=== PATIENT | female | born 1990 | race Caucasian/White ===

== ENCOUNTER 2021-11-07 12:53 | Emergency (ER) | payer BC, SELFPAY ==
[2021-11-07 13:18] VITALS: BP 119/88; PULSE 67; RESP 18; TEMP 36.6; O2SAT 99; BMI 28.3
--- NOTE | 2021-11-07 13:41 | ED_ITS ---
HPI - Chest Pain General Time Seen by Provider: 13:30 Date Seen: 11/07/21 Chief Complaint: Chest Pain Stated Complaint: Chest pain Time Seen by Provider: 11/07/21 13:00 Source: patient Mode of arrival: ambulatory History of Present Illness HPI narrative: This 31-year-old female comes in reporting intermittent chest discomfort just to the left of her sternum that began yesterday. She did not have any associated nausea, vomiting, lightheadedness, shortness of breath, or diaphoresis. MD complaint: chest discomfort Pertinent past history: coronary artery disease Onset (ago): day(s) (One day ago.) Timing of current episode: episodic Prior episodes: No Onset: during rest Pain location: left chest Associated symptoms: nausea, vomiting, diaphoresis and dyspnea Treatment prior to arrival: none Risk Factors Coronary artery disease risk factors: none Related Data Home Medications Medication Instructions Recorded Confirmed No Known Home Medications 11/07/21 11/07/21 Allergies Allergy/AdvReac Type Severity Reaction Status Date / Time No Known Drug Allergies Allergy Verified 11/07/21 13:12 Review of Systems Status of ROS Reports: 10 or more systems reviewed and unremarkable except as noted in History and below Const Denies: fever Eyes Denies: change in vision ENMT Denies: throat pain or ear pain Cardio Reports: chest pain and palpitations; Denies: shortness of breath with exertion Resp Denies: shortness of breath GI Denies: abdominal pain Denies: painful urination Musculo Denies: back pain Neuro Denies: headache Psych Denies: anxiety Endo Denies: excessive urination PFSH PFSH Social History Smoking Status: Never smoker Do you use any of these nicotine containing products: None Second hand tobacco smoke exposure: No How often do you have a drink containing alcohol: monthly or less AUDIT-C Alcohol total score: 1 Non-prescribed substance use: denies use Exam Const Vital Signs, click to edit/add: Vital Signs - 24 hr 11/07/21 13:18 Temperature 97.9 F Pulse Rate [Right Pulse Oximeter] 67 Respiratory Rate 18 Blood Pressure [Right Upper Arm] 119/88 Pulse Oximetry 99 Common normals: no apparent distress, oriented x3 and alert Orientation/consciousness: Yes awake HENMT Common normals: normocephalic Head and scalp: normocephalic Face and sinus: normal facial exam Eye Common normals: PERRL General eye: normal appearance of both eyes Pupil: PERRL Neck & C-Spine Common normals: full ROM Lymph Lymphatic: no lymphadenopathy noted Chest Common normals: inspection of chest normal Resp Common normals: normal respiratory effort and clear to auscultation bilaterally Auscultation: clear to auscultation bilaterally Cardio Common normals: regular rate and regular rhythm Rate: regular rate Rhythm: regular rhythm GI Common normals: Normal to inspection, nondistended, normoactive bowel sounds present Auscultation: normoactive bowel sounds Common normals: no CVA tenderness Bladder/kidney exam: no CVA tenderness Back & Pelvis Common normals: no CVA tenderness Thoracic spine/upper back: thoracic ROM normal Lumbar spine/lower back: lumbar ROM normal Extremity Common normals: normal to inspection Neuro Common normals: oriented x3 Sensorium/orientation: awake and alert Speech: speech normal Psych Common normals: mental status grossly normal Skin Common normals: no rashes or lesions noted General skin exam: no rashes or lesions noted Course Course Hospital Course: This patient comes in with chest discomfort as described above. She has no c ardiac risk factors. Her signs and symptoms are not exertional. She is not showing signs that are suspicious for a cardiac or pulmonary cause for her chest discomfort. More likely this is related to chest wall pain. Her EKG shows normal sinus rhythm. There are no ST or T-wave abnormalities. Vital Signs Vital signs: Initial Vital Signs Temperature 97.9 F 11/07/21 13:18 Temperature Source Temporal Artery Scan 11/07/21 13:18 Pulse Rate 67 11/07/21 13:18 Respiratory Rate 18 11/07/21 13:18 Respiratory Depth Normal 11/07/21 13:18 Blood Pressure 119/88 11/07/21 13:18 Blood Pressure Mean 98 11/07/21 13:18 Pulse Oximetry 99 11/07/21 13:18 Oxygen Delivery Method 11/07/21 13:18 Vital Signs Temperature 97.9 F 11/07/21 13:18 Pulse Rate 67 11/07/21 13:18 Respiratory Rate 18 11/07/21 13:18 Blood Pressure 119/88 11/07/21 13:18 Pulse Oximetry 99 11/07/21 13:18 Temperature 97.9 F 11/07/21 13:18 Pulse Rate 67 11/07/21 13:18 Respiratory Rate 18 11/07/21 13:18 Blood Pressure 119/88 11/07/21 13:18 Pulse Oximetry 99 11/07/21 13:18 MDM - Chest Pain MDM Narrative Medical decision making narrative: I discussed lab and imaging options with the patient and in a process of shared decision making she declined anything beyond EKG. ECG Data Attestation: I personally reviewed and interpreted this ECG as follows: (Normal sinus rhythm. There are no ST or T-wave abnormalities.) Discharge Plan Discharge Clinical Impression: Costalchondritis Patient Disposition: Home, Self-Care Condition: Stable Instructions: Costochondritis (ED) Activity Level: No Restrictions Discharge Diet: Regular Prescriptions: No Action No Known Home Medications 0RF Stand Alone Forms: My[employer] Info Instructions
[2021-11-07 14:26] VITALS: BP 110/85; PULSE 67; RESP 14
== END 2021-11-07 14:30 | disposition home or self-care (01) ==
PROVIDERS: Emergency Provider Emergency Medicine Emergency Medical Services
DX: M94.0 Chondrocostal junction syndrome [Tietze] (principal)
CPT/HCPCS: 93005; 99283; 99284

== ENCOUNTER 2021-12-24 17:19 | Outpatient (CLI) | payer BC, SELFPAY ==
[2021-12-24 21:33] LABS: Free T4 Free Thyroxine* 0.78 ng/dL (0.70-1.85)
== END 2021-12-24 17:20 | disposition home or self-care (01) ==
PROVIDERS: Visit Provider Physician Assistant
DX: Z01.419 Encounter for gynecological examination (general) (routine) without abnormal findings (principal); N92.0 Excessive and frequent menstruation with regular cycle; Z13.6 Encounter for screening for cardiovascular disorders; Z12.4 Encounter for screening for malignant neoplasm of cervix
CPT/HCPCS: 84439; 84443; 87624; 88175

== ENCOUNTER 2022-01-23 14:54 | Outpatient (CLI) | payer BC, SELFPAY ==
--- NOTE | 2022-01-23 15:00 | CRLHL7_ITS ---
For Patients: As a result of the Century Cures Act, medical imaging exams and procedure reports are released immediately into your electronic medical record. You may view this report before your referring provider. If you have questions, please contact your health care provider. INDICATION: DYSMENORRHEA COMPARISON: none TECHNIQUE: 2D kebede scale and color Doppler images were acquired of the pelvis using a transabdominal and transvaginal approach. FINDINGS: Sonographic images demonstrate a normal size and smooth outer contour of the uterus. Uterus measures 8.3 cm in length by 4.2 cm in AP diameter by 4.7 cm in transverse dimension. The myometrium has a the mildly heterogeneous echotexture. The endometrial lining measures 10 mm in composite thickness. The right ovary measures 2.7 x 1.5 x 2.0 cm in size and the left ovary measures 3.7 x 1.9 x 2.2 cm. The ovaries demonstrate normal arterial and venous blood flow on color Doppler analysis. There are no suspicious fluid collections within the cul-de-sac. IMPRESSION: No uterine fibroid. Endometrium measures 1 centimeter. Dictated by Bebo Mireles MD @ 01/23/2022 3:53:29 PM (Electronically Signed)
== END 2022-01-23 14:55 | disposition home or self-care (01) ==
LOC: US 14:56
PROVIDERS: Visit Provider Physician Assistant
DX: N94.6 Dysmenorrhea, unspecified (principal)
CPT/HCPCS: 76830; 76856

== ENCOUNTER 2022-04-14 14:44 | Outpatient (CLI) | payer BC, SELFPAY ==
[2022-04-14 18:03] LABS: Cholesterol* 158 mg/dL (90-199); Triglycerides* 99 mg/dL (40-149)
[2022-04-14 18:04] LABS: HDL Cholesterol* 61 mg/dL (>=50); LDL Cholesterol Calculated 77 mg/dL (<100)
[2022-04-14 19:19] LABS: Free T4 Free Thyroxine* 0.72 ng/dL (0.70-1.85)
== END 2022-04-14 14:45 | disposition home or self-care (01) ==
PROVIDERS: Visit Provider Physician Assistant
DX: E03.9 Hypothyroidism, unspecified (principal); Z13.6 Encounter for screening for cardiovascular disorders
CPT/HCPCS: 80061; 84439; 84443

== ENCOUNTER 2022-05-14 13:46 | Outpatient (CLI) | payer BC, SELFPAY ==
[2022-05-14 17:55] LABS: Free T4 Free Thyroxine* 0.81 ng/dL (0.70-1.85)
== END 2022-05-14 13:47 | disposition home or self-care (01) ==
PROVIDERS: PCP Physician Assistant; Visit Provider Physician Assistant
DX: E03.9 Hypothyroidism, unspecified (principal)
CPT/HCPCS: 84439; 84443

== ENCOUNTER 2022-05-30 14:33 | Outpatient (CLI) | payer BC, SELFPAY ==
[2022-05-30 17:52] LABS: Albumin* 4.6 g/dL (3.3-5.0); Chloride* 104 mmol/L (96-114); Sodium* 138 mmol/L (135-149)
[2022-05-30 17:53] LABS: Potassium* 4.2 mmol/L (3.6-5.1)
[2022-05-30 17:55] LABS: Alkaline Phosphatase* 54 U/L (40-150); Aspartate Amino Transferase* 21 U/L (12-35); Bilirubin Total* 0.4 mg/dL (0.1-1.5); Blood Urea Nitrogen* 10 mg/dL (5-24); Carbon Dioxide* 24 mmol/L (20-32); Creatinine* 0.7 mg/dL (0.5-1.5); Estimated Glomerular Filt Rate 118 ml/min; Total Protein* 7.6 g/dL (6.0-8.3)
[2022-05-30 17:56] LABS: Alanine Aminotransferase* 14 U/L (4-35); Calcium* 9.7 mg/dL (8.4-10.6); Glucose* 80 mg/dL (60-115)
[2022-05-30 18:15] LABS: Vitamin D 25 Hydroxy* 21 ng/mL (30-80)
== END 2022-05-30 14:34 | disposition home or self-care (01) ==
PROVIDERS: PCP Physician Assistant; Visit Provider Physician Assistant
DX: R53.83 Other fatigue (principal); E03.9 Hypothyroidism, unspecified; F41.9 Anxiety disorder, unspecified
CPT/HCPCS: 80053; 82306

== ENCOUNTER 2022-06-23 08:49 | Outpatient (CLI) | payer BC, SELFPAY ==
[2022-06-23 17:37] LABS: Free T4 Free Thyroxine* 1.57 ng/dL (0.70-1.85)
== END 2022-06-23 08:50 | disposition home or self-care (01) ==
LOC: NFLDREF 14:41
PROVIDERS: PCP Physician Assistant; Visit Provider Physician Assistant
DX: E03.9 Hypothyroidism, unspecified (principal); R79.89 Other specified abnormal findings of blood chemistry; F41.9 Anxiety disorder, unspecified
CPT/HCPCS: 84439; 84443

== ENCOUNTER 2022-07-16 07:56 | Outpatient (CLI) | payer BC, SELFPAY ==
--- NOTE | 2022-07-16 08:00 | CRLHL7_ITS ---
For Patients: As a result of the Century Cures Act, medical imaging exams and procedure reports are released immediately into your electronic medical record. You may view this report before your referring provider. If you have questions, please contact your health care provider. INDICATION: Sinusitis. TECHNIQUE: Noncontrast CT images acquired through the paranasal sinuses. COMPARISON: None. FINDINGS: No air-fluid levels to suggest acute sinusitis. Lfdi-gr-[id number] circumferential mucosal thickening in the hypoplastic left maxillary sinus. The left ethmoid infundibulum is widely patent. Mild mucosal thickening in the right maxillary sinus. The right ethmoid infundibulum is widely patent. The frontal sinuses and frontal recesses are clear. Minimal mucosal thickening within the ethmoid air cells. Mild mucosal thickening in the sphenoid sinuses. The right sphenoethmoidal recess is partially opacified. The left sphenoethmoidal recess is widely patent. There is 4 mm rightward nasal septal deviation with 4 mm rightward directed septal spur contacting the right inferior nasal turbinate. No nasal cavity masses. The mastoid air cells are clear. IMPRESSION: 1. Kxvs-au-seijxiac mucosal thickening in the hypoplastic left maxillary sinus. There is otherwise mild paranasal sinus mucosal disease. No air-fluid levels to suggest acute sinusitis. 2. Rightward nasal septal deviation with rightward directed septal spur contacting the right inferior nasal turbinate. Please note that all CT scans at this facility use dose modulation, iterative reconstruction, and/or weight-based dosing when appropriate to reduce radiation dose to as low as reasonably achievable. Dictated by Tyler De Anda MD @ 07/16/2022 12:37:03 PM (Electronically Signed)
== END 2022-07-16 07:57 | disposition home or self-care (01) ==
PROVIDERS: Visit Provider Otolaryngology
DX: J32.9 Chronic sinusitis, unspecified (principal); J32.0 Chronic maxillary sinusitis; J34.2 Deviated nasal septum
CPT/HCPCS: 70486

== ENCOUNTER 2022-08-14 10:00 | Outpatient (CLI) | payer BC, SELFPAY | END 2022-08-14 10:01 | disposition home or self-care (01) | LOC: NFLDREF 08-15 00:22 | PROVIDERS: PCP Physician Assistant; Referring Provider Physician Assistant; Visit Provider Physician Assistant | DX: E03.9 Hypothyroidism, unspecified (principal); R79.89 Other specified abnormal findings of blood chemistry | CPT/HCPCS: 82306; 84439; 84443 ==

== ENCOUNTER 2022-11-07 14:26 | Outpatient (CLI) | payer BC, SELFPAY | END 2022-11-07 14:27 | disposition home or self-care (01) | PROVIDERS: PCP Physician Assistant; Visit Provider Physician Assistant | DX: R35.0 Frequency of micturition (principal); E03.9 Hypothyroidism, unspecified; R79.89 Other specified abnormal findings of blood chemistry | CPT/HCPCS: 84443; 87086 ==

== ENCOUNTER 2022-11-14 09:25 | Outpatient (CLI) | payer BC, SELFPAY | END 2022-11-14 09:26 | disposition home or self-care (01) | PROVIDERS: PCP Physician Assistant; Visit Provider Obstetrics & Gynecology | DX: R35.0 Frequency of micturition (principal) | CPT/HCPCS: 87086 ==

== ENCOUNTER 2022-12-12 13:55 | Outpatient (CLI) | payer OTHER, BC, SELFPAY ==
--- NOTE | 2022-12-12 14:00 | CT_ITS ---
Patient: BRENT COLLINS Facility:?[facility] Patient ID:?[id number] Site Patient ID:?[id number]. Site :?[id number] Study:?CT-Abdomen/Pelvis w/o-12/12/2022 2:11:58 PM Ordering Physician:Cici Diamond Final Report: INDICATION: Right flank pain for 7 weeks. Fluctuates in pain level. TECHNIQUE: CT abdomen and pelvis without contrast. COMPARISON: None. FINDINGS: Limited exam due to lack of IV contrast. Heart is normal in size. No pericardial or pleural effusion. Clear lung bases. Noncontrast appearance of the liver, spleen, pancreas, adrenals within normal limits. Gallstone noted. No pericholecystic fluid or gallbladder wall thickening to suggest acute cholecystitis. No nephrolithiasis or hydronephrosis. No free pelvic fluid or ascites. Multiple phleboliths are seen in the pelvis. Uterus is present with IUD. Urinary bladder is within normal limits. No enlarged pelvic or retroperitoneal lymph nodes. No abnormally dilated bowel loops to suggest bowel obstruction. Normal appendix. No pneumoperitoneum. No suspicious bony lesion. IMPRESSION: Limited exam due to lack of IV contrast. No nephrolithiasis. Cholelithiasis without imaging evidence of acute cholecystitis. Normal appendix. Please note that all CT scans at this facility use dose modulation, iterative reconstruction, and/or weight-based dosing when appropriate to reduce radiation dose to as low as reasonably achievable. Dictated by John Avila MD @ 12/14/2022 9:26:07 PM Signed by:?John Avila MD @12/14/2022 9:26:07 PM (Electronic Signature)
== END 2022-12-12 13:56 | disposition home or self-care (01) ==
LOC: CT 13:56
PROVIDERS: PCP Physician Assistant; Visit Provider Physician Assistant
DX: R10.9 Unspecified abdominal pain (principal); K80.20 Calculus of gallbladder without cholecystitis without obstruction
CPT/HCPCS: 74176

== ENCOUNTER 2023-07-28 10:00 | Emergency (ER) | payer OTHER, BC, SELFPAY ==
[2023-07-28 10:18] VITALS: BP 116/85; PULSE 82; RESP 18; TEMP 36.3; O2SAT 99; BMI 28.3
--- NOTE | 2023-07-28 11:04 | ED_ITS ---
HPI - Headache General Time Seen by Provider: 11:04 Date Seen: 07/28/23 Chief Complaint: Headache/Migraine Stated Complaint: migraine headache Time Seen by Provider: 07/28/23 10:56 Source: patient and RN notes reviewed Mode of arrival: ambulatory Limitations: no limitations History of Present Illness HPI Narrative: This 33-year-old female is ambulatory to the ED with a migraine that has been unresponsive to usual home management. She is feeling it in her left eye and mandaeism area, this is typical for her. She does get some spots in her vision, some blurry vision with her migraines. She is not prescribed anything like Imitrex or of those class of drugs. Usually will just use Excedrin. Her migraine started around 5:00 a.m. last night, had general low level headache prior to that. Excedrin, showers, rest has not helped. She has photosensitivity and nausea but no vomiting. Her extremities are working fine, no numbness tingling weakness anywhere. She is able to ambulate. She has not been sick with anything, no cough cold symptoms. MD elicited complaint: migraine Related Data Previous Rx's Medication Instructions Recorded levothyroxine 88 mcg tablet 88 mcg PO DAILY #90 tabs 01/15/23 bupropion HCl 300 mg 24 hr tablet, 300 mg PO QAM #30 tabs 02/12/23 extended release albuterol sulfate 90 mcg/actuation 2 puff inhalation Q4-6H PRN 05/07/23 aerosol inhaler shortness of breath or wheezing #8.5 grams Allergies Allergy/AdvReac Type Severity Reaction Status Date / Time No Known Allergies Allergy Verified 05/07/23 11:16 Review of Systems Status of ROS: Reports: 6 or more systems reviewed and unremarkable except as noted in History and below [facility] Medical History Low vitamin D level ?R79.89 - Other specified abnormal findings of blood chemistry (ICD-10) Injury ?T14.90XA - Injury, unspecified, initial encounter (ICD-10) Hypothyroidism ?E03.9 - Hypothyroidism, unspecified (ICD-10) Depression ?F32.A - Depression, unspecified (ICD-10) Anxiety ?F41.9 - Anxiety disorder, unspecified (ICD-10) Dysmenorrhea ?N94.6 - Dysmenorrhea, unspecified (ICD-10) Menorrhagia ?N92.0 - Excessive and frequent menstruation with regular cycle (ICD-10) Subclinical hypothyroidism (2018) ?E03.8 - Other specified hypothyroidism (ICD-10) Migraine headache ?G43.909 - Migraine, unspecified, not intractable, without status migrainosus (ICD-10) Surgical History Status post incision and drainage ?Z98.890 - Other specified postprocedural states (ICD-10) Family History Father High blood pressure Paternal Grandfather Coronary artery disease Other High cholesterol Social History Narrative: Single. 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 Does not exercise regularly. Nonsmoker. Occasional alcohol use. Denies recreational drug use. No concerns with safety or abuse Smoking Status: Never smoker Do you use any of these nicotine containing products: None Second hand tobacco smoke exposure: No How often do you have a drink containing alcohol: monthly or less How many standard drinks containing alcohol do you have on a typical day: 1 or 2 How often do you have six or more drinks on one occasion: Never AUDIT-C Alcohol total score: 1 Non-prescribed substance use: denies use Little interest or pleasure in doing things: several days Feeling down, depressed, or hopeless: several days service: No Exam Const: Vital Signs, click to edit/add: Vital Signs - 24 hr 07/28/23 10:18 Temperature 97.4 F L Pulse Rate [Pulse Oximeter] 82 Respiratory Rate 18 Blood Pressure [Le ft Upper Arm] 116/85 Pulse Oximetry 99 Oxygen Delivery Me thod Room Air This 33-year-old female is alert, interactive but lying in a dark room with sunglasses on on her left side. Speech is normal, pupils equal round reactive, sclera clear, conjugate gaze, symmetrical facial function. Neck supple. Lungs clear, good air entry, able to speak in complete sentences. CV regular rate and rhythm, no murmur, normal S1-S2, no S3-S4. Has normal symmetrical strength, was ambulatory into the ED of her own accord. States she has normal sensation throughout. Documenting provider has reviewed patient's vital signs: yes Course Course ED Course: Will establish an IV, give L of normal saline, 4 mg IV Zofran and 15 mg IV Toradol. Have reviewed her past medical history, does not appear that she has been in for migraines before. This basic cocktail may be sufficient. If it is not, may move to the [facility]. I do not see any need for any imaging or labs. This is her typical migraine but just unresponsive to usual medicines at home. She is too far in that a doubt any of the triptan class of medicines will work. Reevaluation(s) Time of Reevaluation #1: 12:12 Reevaluation #1: Patient reports she is feeling better, still has some IV fluids to finish. She does not feel she needs any further management. Will complete IV fluids and plan to discharge to home. Vital Signs Vital signs: Initial Vital Signs Temperature 97.4 F L 07/28/23 10:18 Temperature Source Temporal Artery Scan 07/28/23 10:18 Pulse Rate 82 07/28/23 10:18 Pulse Rhythm Regular 07/28/23 10:18 Respiratory Rate 18 07/28/23 10:18 Blood Pressure 116/85 07/28/23 10:18 Blood Pressure Mean 95 07/28/23 10:18 Blood Pressure Position Supine 07/28/23 10:18 Pulse Oximetry 99 07/28/23 10:18 Oxygen Delivery Method Room Air 07/28/23 10:18 Vital Signs Temperature 97.4 F L 07/28/23 10:18 Pulse Rate 82 07/28/23 10:18 Respiratory Rate 18 07/28/23 10:18 Blood Pressure 116/85 07/28/23 10:18 Pulse Oximetry 99 07/28/23 10:18 Oxygen Delivery Method Room Air 07/28/23 10:18 Temperature 97.4 F L 07/28/23 10:18 Pulse Rate 82 07/28/23 10:18 Respiratory Rate 18 07/28/23 10:18 Blood Pressure 116/85 07/28/23 10:18 Pulse Oximetry 99 07/28/23 10:18 Oxygen Delivery Method Room Air 07/28/23 10:18 Medications Administered Medications: Discontinued Medications Generic Name Dose Route Start Last Admin Trade Name Freq PRN Reason Stop Dose Admin Sodium Chloride 1,000 mls @ 1,000 mls/hr 07/28/23 11:10 07/28/23 11:39 0.9 % Sodium Chloride 1000 Ml IV 07/28/23 12:09 1,000 mls/hr .Q1H ROLANDA Administration Ketorolac Tromethamine 15 mg 07/28/23 11:09 07/28/23 11:39 Ketorolac 15 Mg/Ml Inj IVP 07/28/23 11:10 15 mg ONCE ONE Administration Ondansetron HCl 4 mg 07/28/23 11:09 07/28/23 11:39 Ondansetron 2 Mg/Ml Inj IVP 07/28/23 11:10 4 mg ONCE ONE Administration Discharge Plan Discharge Clinical Impression: Migraine headache Qualifiers: Migraine type: unspecified Patient Disposition: Home, Self-Care Condition: Stable Instructions: Migraine Headache (ED) Additional Instructions: Recommend going home to rest. Stay hydrated and drink plenty of fluids. If you have any residual headache, would recommend dosing with usual medicines at home. If your migraine headache returns and is not responsive to usual medicines, can return here to the ER for further evaluation and treatment. Activity Level: Activity as Tolerated Discharge Diet: Regular Prescriptions: No Action albuterol sulfate 90 mcg/actuation HFA aerosol inhaler 2 puff inhalation Q4-6H PRN (Reason: shortness of breath or wheezing) Qty: 8.5 0RF levothyroxine 88 mcg tablet 88 mcg PO DAILY Qty: 90 2RF bupropion HCl 300 mg tablet extended release 24 hr 300 mg PO QAM Qty: 30 0RF Rx Instructions: Needs to schedule follow up appointment with her provider before next refill. Follow Up/Referrals: Niharika Montgomery PA-C [Primary Care Provider] - Stand Alone Forms: [employer] Info Instructions
[2023-07-28] MEDS: KETOROLAC 15 MG/ML inj IVP (11:39)
[2023-07-28] MEDS: ONDANSETRON 2 MG/ML inj 4 MG IVP (11:39)
[2023-07-28] MEDS: 0.9 % SODIUM CHLORIDE 1000 ml 1,000 ML IV (11:39)
[2023-07-28 12:23] VITALS: BP 112/80; PULSE 78; RESP 18; O2SAT 98
== END 2023-07-28 12:48 | disposition home or self-care (01) ==
PROVIDERS: Emergency Provider Family Medicine; PCP Physician Assistant
DX: G43.909 Migraine, unspecified, not intractable, without status migrainosus (principal)
CPT/HCPCS: 96374; 96375; 99283; J1885; J2405; J7030

== ENCOUNTER 2024-01-05 18:35 | Outpatient (CLI) | payer OTHER, SELFPAY | END 2024-01-05 18:36 | disposition home or self-care (01) | LOC: NFLDREF 18:36 | PROVIDERS: Visit Provider Registered Nurse | DX: Z01.419 Encounter for gynecological examination (general) (routine) without abnormal findings (principal); E03.9 Hypothyroidism, unspecified; R68.82 Decreased libido; R63.5 Abnormal weight gain; R79.89 Other specified abnormal findings of blood chemistry | CPT/HCPCS: 84439; 84443 ==

== ENCOUNTER 2024-02-19 10:05 | Outpatient (CLI) | payer OTHER, SELFPAY | END 2024-02-19 10:06 | disposition home or self-care (01) | LOC: NFLDREF 02-20 18:57 | PROVIDERS: Referring Provider Registered Nurse; Visit Provider Registered Nurse | DX: E03.9 Hypothyroidism, unspecified (principal) | CPT/HCPCS: 84443 ==

== ENCOUNTER 2024-06-24 16:04 | Outpatient (CLI) | payer OTHER, SELFPAY | END 2024-06-24 16:05 | disposition home or self-care (01) | PROVIDERS: Visit Provider Family Medicine | DX: E03.9 Hypothyroidism, unspecified (principal); R79.89 Other specified abnormal findings of blood chemistry; Z13.228 Encounter for screening for other metabolic disorders; Z13.220 Encounter for screening for lipoid disorders; Z13.21 Encounter for screening for nutritional disorder | CPT/HCPCS: 80053; 80061; 82306; 82607; 84439; 84443 ==

== ENCOUNTER 2025-01-26 13:28 | Outpatient (CLI) | payer OTHER, SELFPAY | END 2025-01-26 13:29 | disposition home or self-care (01) | PROVIDERS: PCP Family Medicine; Visit Provider Physician Assistant | DX: R79.89 Other specified abnormal findings of blood chemistry (principal); E03.9 Hypothyroidism, unspecified; E66.811 Obesity, class 1; F41.9 Anxiety disorder, unspecified | CPT/HCPCS: 82306; 84439; 84443 ==